=== PATIENT | female | born 1950 | race Two or more races ===

== ENCOUNTER 2024-09-04 10:51 | Emergency (ER) | payer MEDICARE, OTHER, SELFPAY ==
[2024-09-04 10:56] VITALS: BP 119/75; PULSE 100; RESP 17; TEMP 36.8; O2SAT 96; BMI 23.8
--- NOTE | 2024-09-04 11:07 | XR_ITS ---
EXAMINATION: Ankle, left 3 views . Technique: Ankle AP, oblique, lateral 3 views Date and time of exam: September 04, 2024 1148 hours INDICATIONS: Patient fell today with injury to the ankle, ankle pain FINDINGS: Prominent osteopenia Recommend foot films to confirm fracture of the fifth metatarsal No ankle fracture IMPRESSION: Recommend foot films to better evaluate fracture fifth metatarsal
--- NOTE | 2024-09-04 11:07 | XR_ITS ---
Examination: Hand, left 3 views Technique: Hand AP, oblique, lateral 3 views Date and time of exam: September 04, 2024 1148 hours INDICATIONS: Patient fell today with injury to the hand and wrist, left hand wrist pain FINDINGS: Acute impacted fracture distal radial metaphysis No significant displacement Prominent osteopenia Carpal bones metacarpals and phalanges appear intact IMPRESSION: Acute impacted fracture distal radial metaphysis
--- NOTE | 2024-09-04 11:07 | XR_ITS ---
Examination: Wrist, left 3 views Technique: Wrist AP, oblique, lateral 3 views Date and time of exam: September 04, 2024 1148 hours INDICATIONS: Patient fell today with injury to the wrist, wrist pain. FINDINGS: Acute impacted fracture distal radial metaphysis No significant displacement Carpal bones intact IMPRESSION: Acute impacted fracture distal radial metaphysis
--- NOTE | 2024-09-04 11:08 | PD.EDRME ---
Rapid Medical Screening Exam [facility] Arrival date/time: 09/04/24 10:51 Female presents emergency department complaining of left wrist and left ankle pain status post accidental fall this past Monday. Patient reports was getting out of the shower slipped and suffered fall with no injury to head or neck and no LOC. Chief Complaint: Extremity Injury, Upper Time Seen by Provider: 09/04/24 11:02 Vital signs: Vital Signs Temperature 98.2 F 09/04/24 10:56 Pulse Rate 100 09/04/24 10:56 Respiratory Rate 17 09/04/24 10:56 Blood Pressure 119/75 09/04/24 10:56 Pulse Oximetry (%) 96 09/04/24 10:56 Oxygen Delivery Method Room Air 09/04/24 10:56
[2024-09-04] MEDS: KETOROLAC INJ 60 MG/2 ML VIAL 30 MG IM (11:49)
[2024-09-04 13:14] VITALS: BP 119/73; PULSE 76; RESP 16; TEMP 36.8; O2SAT 97
--- NOTE | 2024-09-04 13:22 | XR_ITS ---
Examination: Foot, left, 3 views Technique: AP, oblique, lateral views foot, 3 views Date and time of exam: September 04, 2024 1331 hours INDICATIONS: Injury to the foot today, foot pain. FINDINGS: Acute comminuted angulated fracture mid to distal fifth metatarsal Prominent osteopenia Tarsal bones digits appear intact IMPRESSION: Acute comminuted angulated fracture mid to distal fifth metatarsal
--- NOTE | 2024-10-15 02:09 | EDNOTE_ITS ---
Upper Extremity Injury RME/HPI General Chief Complaint: Extremity Injury, Upper Stated Complaint: FALL MONDAY, PAIN LEFT HAND, WRIST FEET Time Seen by Provider: 09/04/24 11:02 Source: patient Arrival date/time: 09/04/24 10:51 74 y/o Female presents emergency department complaining of left wrist and left ankle pain status post accidental fall this past Monday. Patient reports was getting out of the shower slipped and suffered fall with no injury to head or neck and no LOC. Mode of arrival: wheelchair Limitations: physical limitation RME / HPI RME / HPI narrative: 09/04/24 10:51 Female presents emergency department complaining of left wrist and left ankle pain status post accidental fall this past Monday. Patient reports was getting out of the shower slipped and suffered fall with no injury to head or neck and no LOC. Related Data Home Medications ?Medication ?Instructions ?Recorded ?Confirmed albuterol sulfate 90 mcg/actuation 2 hr inhalation QID 04/30/19 06/09/20 aerosol inhaler (ProAir HFA) codeine 10 mg-guaifenesin 100 mg/5 10 ml PO TID 04/30/19 06/09/20 mL oral liquid (Virtussin AC) esomeprazole magnesium 40 mg 40 mg PO DAILY 04/30/19 06/09/20 capsule,delayed release (Nexium) levothyroxine 50 mcg tablet 50 mcg PO DAILY 04/30/19 06/09/20 lorazepam 1 mg tablet 1 mg PO BID 04/30/19 06/09/20 ondansetron HCl 4 mg tablet 4 mg PO QID PRN Nausea 04/30/19 06/09/20 (Zofran) acetaminophen 325 mg tablet 325 mg PO Q4H PRN Pain 11/29/19 06/09/20 (Tylenol) aspirin 81 mg tablet,delayed 81 mg PO QDAY 11/29/19 06/09/20 release metoprolol succinate 25 mg 25 mg PO QDAY 11/29/19 06/09/20 tablet,extended release 24 hr nitroglycerin 0.4 mg sublingual 0.4 mg buccal PRN PRN Chest Pain 11/29/19 06/09/20 tablet acetaminophen 300 mg-codeine 60 mg 1 tab PO BID 06/09/20 06/09/20 tablet metoprolol succinate 25 mg 25 mg PO QDAY 06/09/20 06/09/20 tablet,extended release 24 hr (Toprol XL) prochlorperazine maleate 10 mg 10 mg PO Q8H PRN Vomiting 06/09/20 06/09/20 tablet (Compazine) Previous Rx's ?Medication ?Instructions ?Recorded ibuprofen 600 mg tablet 600 mg PO Q6H #30 tabs 09/04/24 oxycodone-acetaminophen 5 mg-325 1 tab PO BID PRN pain (scale score 09/04/24 mg tablet (Percocet) 7-10) #10 tabs Allergies Allergy/AdvReac Type Severity Reaction Status Date / Time methylene blue Allergy Severe Hypotension Verified 09/04/24 10:54 Tetracyclines Allergy Severe Vomiting Verified 09/04/24 10:54 ciprofloxacin Allergy Intermediate Rash Verified 09/04/24 10:54 sulfamethoxazole Allergy Intermediate Rash Verified 09/04/24 10:54 trimethoprim Allergy Unknown Rash Verified 09/04/24 10:54 Review of Systems Review of Systems Systems Reviewed: All systems reviewed, normal except as documented Constitutional Constitutional: Reports system reviewed and no additional complaints, except as documented, Denies body ache(s), Denies chills and Denies fever(s) Eyes Eyes: Reports system reviewed and no additional complaints, except as documented and Denies change in vision ENT Ears, Nose, Mouth, and Throat: Reports system reviewed and no additional complaints, except as documented, Denies disequilibrium, Denies dizziness, Denies sore throat and Denies vertigo Cardiovascular Cardiovascular: Reports system reviewed and no additional complaints, except as documented, Denies chest pain and Denies dyspnea Respiratory Respiratory: Reports system reviewed and no additional complaints, except as documented, Denies chest congestion, Denies cough and Denies dyspnea Gastrointestinal Gastrointestinal: Reports system reviewed and no additional complaints, except as documented, Denies abdominal pain, Denies nausea and Denies vomiting Musculoskeletal Musculoskeletal: Reports system reviewed and no additional complaints, except as documented, Reports abnormal gait and Reports arthralgias Integumentary/Breasts Skin/Breast: Reports system reviewed and no additional complaints, except as documented, Denies erythema, Denies rash and Denies wounds Neurologic Neurologic: Reports system reviewed and no additional complaints, except as documented, Reports abnormal gait, Denies disequilibrium, Denies dizziness and Denies vertigo Past Medical History Past Medical History NEUROLOGIC: Positive Migraine CARDIAC: Positive Cardiac Disorders, Cardiac Arrhythmia and Hypotension; Negative Congestive Heart Failure or Hypertension RESPIRATORY: Positive Asthma; Negative Chronic Obstructive Pulmonary Disease (COPD) GASTROINTESTINAL: Positive Gall Bladder Disease and Gastroesophageal Reflux Disease GENITOURINARY: Negative Renal Disease REPRODUCTIVE: Positive Breast Cancer and Previous Pregnancies MUSCULOSKELETAL: Positive Arthritis ENDOCRINE: Positive Hypothyroidism; Negative Diabetes Mellitus Type 1 or Diabetes Mellitus Type 2 HEMATOLOGIC: Positive Anemia; Negative Sickle Cell Disease PSYCHO/SOCIAL: Positive Anxiety OTHER HISTORY: Positive Blood Transfusions, Chemotherapy, Radiation Therapy, Chicken Pox and Breast Cancer; Negative Blood Transfusion Reaction Family History FAMILY HISTORY: Positive Family Respiratory Disorders, Family Cardiac Disorders and Family Cancer Surgical History SURGICAL: Positive Tonsillectomy, Abdominal Surgery, Mastectomy, Hysterectomy and Section Social History SMOKING STATUS: Never smoker SUBSTANCE USE: does not use ED Exam General Limitations: Present physical limitation General appearance: Present alert and in no apparent distress Head Head exam: Present atraumatic Eye Eye exam: Present normal appearance, PERRL and EOMI ENT ENT exam: Present normal exam, normal oropharynx and mucous membranes moist Neck Neck exam: Present normal inspection, full ROM and trachea midline Chest Chest inspection: Present normal inspection and symmetric chest wall rise Respiratory Respiratory exam: Present normal lung sounds bilaterally Cardiovascular Cardiovascular exam: Present regular rate, normal rhythm and normal heart sounds Abdominal Exam Abdominal exam: Present soft and normal bowel sounds Extremities Exam Extremities exam: Present normal inspection and full ROM Expanded Upper Extremity Exam Forearm/Wrist exam: Present tenderness (left wrist) Expanded Lower Extremity Exam Ankle exam: Present tenderness (left ankle) Back Exam Back exam: Present normal inspection and full ROM Neurological Exam Neurological exam: Present alert, oriented X3 and CN II-XII intact Psychiatric Psychiatric exam: Present normal affect and normal mood Skin Skin exam: Present warm, dry, intact and normal color Course Quality Measures none Orders Category Date Time Status Splint / Immobilizer STAT Care 09/04/24 14:09 Completed Splint / Immobilizer STAT Care 09/04/24 14:10 Completed XR ankle comp LT min 3V Stat Exams 09/04/24 11:07 Completed XR foot comp LT min 3V Stat Exams 09/04/24 13:22 Completed XR hand comp LT min 3V Stat Exams 09/04/24 11:07 Completed XR wrist comp LT min 3V Stat Exams 09/04/24 11:07 Completed Ketorolac Inj [Toradol Inj] Med 09/04/24 11:07 Discontinued 30 mg IM X1 ONE Vital Signs Vital signs: Vital Signs Temperature 98.2 F 09/04/24 10:56 Pulse Rate 100 09/04/24 10:56 Respiratory Rate 17 09/04/24 10:56 Blood Pressure 119/75 09/04/24 10:56 Pulse Oximetry (%) 96 09/04/24 10:56 Oxygen Delivery Method Room Air 09/04/24 10:56 96% RA WNL. Procedures -ED Splint Fabrication: Clinician Made Type: Posterior Leg Reason for Splint: Improve Function, Optimal Positioning, Minimize Deformities, Prevent Deformities and Support Joint/Muscle Site condition: Intact Circulation Distal to Splint: Yes Movement Distal to Splint: Yes Senation Distal to Splint: Yes Tolerance: Tolerates Well Extremity Injury MDM Narrative MDM Narrative:: 74 y/o Female presents emergency department complaining of left wrist and left ankle pain status post accidental fall this past Monday. Patient reports was getting out of the shower slipped and suffered fall with no injury to head or neck and no LOC. Patient gcs 15. XR left foot: IMPRESSION: Early healing comminuted angulated fracture distal fifth metatarsal with stable alignment XR wrist left: IMPRESSION: Partial healing fracture distal radial metaphysis, with stable and satisfactory alignment Applied volar splint to left wrist and posterior short to left foot. Patient tolerated well. LUE and LLE neurovascularly intact. Discharged instructed f/u with pcp and request referral to orthopedist surgeon. Patient data External records reviewed:: [facility] previous records Clinical information provided by:: patient Social determinants that could affect healthcare access:: none Patient has the following chronic illnesses:: see chart How is presenting disease/condition affected by chronic disease/condition?: uneffected by Evaluation data The following diagnostics were reviewed and interpreted by me:: radiology exam(s) Lab and/or radiology exams considered but not ordered:: ordered Interpretation Summary: interpreted by me Medications / Prescriptions Medications or Prescriptions considered but not ordered:: ordered Medication administrations:: Medication Administration History Discontinued Medications Ketorolac Tromethamine (Ketorolac Inj 60 Mg/2 Ml Vial) 30 mg IM X1 ONE Stop: 09/04/24 11:08 Last Admin: 09/04/24 11:49 Dose: 30 mg Documented By: ARF given Consultations Consultation(s) initiated? (list below): No Diagnosis Upper Extremity Injury Differential Diagnosis: fracture of wrist and other (ankle fracture) Most likely diagnosis given after review of the tests above:: radial fracture metatarsal fracture Admission Indicated Admission indicated?: not indicated Admission Request Was there a request for admission?: No Disposition Plan Disposition Plan: Discharge Discharge Attestation Discharge Attestation: The patient and all family members were given an opportunity to ask questions and understood the discharge instructions. Discharge instructions specifically effects, indications for sooner follow up or return to the emergency department, and the expected course of current diagnosis. Patient condition: Stable Discharge Plan Plan Patient Disposition: HOME (Self Care) Disposition Comment: Stable Prescriptions/Referrals Prescriptions/Med Rec: New oxycodone-acetaminophen [Percocet] 5-325 mg tablet 1 tab PO BID MDD 2 tabs PRN (Reason: pain (scale score 7-10)) Qty: 10 0RF ibuprofen 600 mg tablet 600 mg PO Q6H Qty: 30 0RF No Action ondansetron HCl [Zofran] 4 mg Tablet 4 mg PO QID PRN (Reason: Nausea) levothyroxine 50 mcg Tablet 50 mcg PO DAILY esomeprazole magnesium [Nexium] 40 mg Capsule,Delayed Release(Dr/Ec) 40 mg PO DAILY codeine-guaifenesin [Virtussin AC] 10-100 mg/5 mL Liquid 10 ml PO TID lorazepam 1 mg Tablet 1 mg PO BID albuterol sulfate [ProAir HFA] 90 mcg/actuation Hfa Aerosol Inhaler 2 hr inhalation QID acetaminophen [Tylenol] 325 mg Tablet 325 mg PO Q4H PRN (Reason: Pain) metoprolol succinate 25 mg Tablet Extended Release 24 Hr 25 mg PO QDAY aspirin 81 mg Tablet,Delayed Release (Dr/Ec) 81 mg PO QDAY nitroglycerin 0.4 mg Tablet, Sublingual 0.4 mg BUCCAL PRN PRN (Reason: Chest Pain) prochlorperazine maleate [Compazine] 10 mg Tablet 10 mg PO Q8H PRN (Reason: Vomiting) acetaminophen-codeine 300-60 mg Tablet 1 tab PO BID metoprolol succinate [Toprol XL] 25 mg Tablet Extended Release 24 Hr 25 mg PO QDAY Referrals: Abdelrahman Dan MD [Primary Care Provider] - In 1 week Problem List Clinical Impression: Radial fracture, Metatarsal fracture Patient/Caregiver Discharge Instructions Education Materials: ED Fracture, Foot, ED Fracture, Upper Extremity Additional Instructions: Follow-up with your primary doctor and request referral to orthopedic surgeon upon discharge. Take medication as prescribed for pain. Return to the emergency department for any worsening symptoms or as needed. Print Language: Nepali Stand Alone Forms: Lavinia Award Info., Patient Portal Info Letter PA/REMANUFACTURING TECHNICIAN Supervising Physician PA/ISAI Supervising Physician: Dr. Livingston Splint/Immobilizer Splint Left Wrist: Fabrication: Clinician Made Type: Volar Reason for Splint: Improve Function, Optimal Positioning, Pain Management, Minimize Deformities, Prevent Deformities and Support Joint/Muscle Site Condition: Intact Circulation Distal to Splint: Yes Movement Distal to Splint: Yes Senation Distal to Splint: Yes Tolerance: Tolerates Well
== END 2024-09-04 14:15 | disposition home or self-care (01) ==
PROVIDERS: Emergency Provider Emergency Medicine; PCP Family Medicine
DX: S92.352A Displaced fracture of fifth metatarsal bone, left foot, initial encounter for closed fracture (principal); S52.502A Unspecified fracture of the lower end of left radius, initial encounter for closed fracture; W18.2XXA Fall in (into) shower or empty bathtub, initial encounter; Y93.E1 Activity, personal bathing and showering
CPT/HCPCS: 29125; 29515; 73110; 73130; 73610; 73630; 99283; J1885

== ENCOUNTER → 2025-03-28 | Outpatient (CLI) | payer MEDICARE, OTHER, SELFPAY ==
--- NOTE | 2025-03-28 | XR_ITS ---
Examination: Screening digital mammography, unilateral left Computer aided detection 3-D breast Tomosynthesis, unilateral Date and time of exam: March 28, 2025 1245 hours Compared to mammograms dating to April 21, 2017 Indication: Screening Technique: Nonmagnified MLO, CC views of the left breast to been obtained, reconstructed from 3-D Tomosynthesis images. R2 computer aided detection program utilized for evaluation of suspicious masses and/or abnormal calcifications. 3-D Tomosynthesis images obtained. Findings: Scattered areas of fibroglandular density. 12 mm focal asymmetry lower left breast MLO view 4 cm from the nipple Impression: BI-RADS Category 0: Incomplete: Need additional imaging evaluation 12 mm focal asymmetry lower left breast MLO view 4 cm from the nipple. Recommend follow-up spot tomographic MLO view, spot tomographic CC view outer left breast left breast sonography to complete the workup
== END | disposition home or self-care (01) ==
PROVIDERS: PCP Family Medicine; Referring Provider Family Medicine; Visit Provider Family Medicine
DX: Z12.31 Encounter for screening mammogram for malignant neoplasm of breast (principal); N64.89 Other specified disorders of breast
CPT/HCPCS: 77063; 77067

== ENCOUNTER → 2025-05-09 | Outpatient (CLI) | payer MEDICARE, OTHER, SELFPAY ==
--- NOTE | 2025-05-09 14:30 | XR_ITS ---
Examination: Breast ultrasound, unilateral, left complete Date and time of exam: May 09, 2025 1430 hours INDICATIONS: Left breast pain several years, personal history right breast cancer mastectomy 2011, mammogram March 28, 2025 12 mm focal asymmetry lower left breast MLO view 4 cm from the nipple Technique: Real-time hidalgo scale ultrasonographic imaging performed left breast including all 4 quadrants as well as nipple retroareolar and axillary region. Findings: No cystic or solid mass IMPRESSION: BI-RADS Category 1: Negative study
--- NOTE | 2025-05-09 15:00 | XR_ITS ---
Examination: Diagnostic digital mammography, unilateral, left Computer aided detection 3-D breast Tomosynthesis, unilateral Date and time of exam: May 09, 2025 1447 hours INDICATIONS: 12 mm focal asymmetry lower left breast MLO view, 4 cm from the nipple mar 28 2025 Technique: Nonmagnified MLO, CC views of the left breast have been obtained, reconstructed from 3-D Tomosynthesis images. R2 computer aided detection program utilized for evaluation of suspicious masses and/or abnormal calcifications. 3-D Tomosynthesis images obtained. Findings: Scattered areas of fibroglandular density Architectural distortion does appear to be present lower left breast, abnormal view in the cc view is centered too high 5 believed to confirm the architectural distortion Impression: BI-RADS category 0: Incomplete: Need additional imaging evaluation, recommend follow-up spot tomographic CC view centered nipple level
== END | disposition home or self-care (01) ==
PROVIDERS: PCP Family Medicine; Referring Provider Family Medicine; Visit Provider Family Medicine
DX: R92.8 Other abnormal and inconclusive findings on diagnostic imaging of breast (principal); Z85.3 Personal history of malignant neoplasm of breast
CPT/HCPCS: 76641; 77061; 77065; G0279

== ENCOUNTER 2025-06-12 12:18 | Outpatient (CLI) | payer MEDICARE, OTHER, SELFPAY ==
[2025-06-12] VITALS (9 sets, daily range): BP systolic 113–142; BP diastolic 56–71; PULSE 64–70; RESP 16–24; TEMP 36.2; O2SAT 95–100; BMI 24.5
--- NOTE | 2025-06-12 13:00 | XR_ITS ---
Examination: IR venous Port-A-Cath check Fluoroscopy Port-A-Cath venogram 7 views Local intravenous lobulated therapy Date and time: June 12, 2025 1308 hours INDICATIONS: Poor function of the Port-A-Cath this month TECHNIQUE AND FINDINGS: Informed consent provided. Timeout performed. Hand injection 8 cc [id number]-300 with serial filming obtained one frame per second Images demonstrate clot in the Port-A-Cath line with poor passage of contrast through the reservoir and through the line 2 mg outflow introduced through the Port-A-Cath line, however blood could not be aspirated from the Port-A-Cath IMPRESSION: Clot formation in the Port-A-Cath, thrombolytic therapy unsuccessful in allowing aspiration of blood from the Port-A-Cath
[2025-06-12] MEDS: ALTEPLASE RECOMB INJ 2 MG VIAL INDWELLCAT (14:13)
[2025-06-12] MEDS: HEPARIN SOD LOCK SYR 100 UNIT/ML 500 UNIT IV (15:00)
== END 2025-06-12 15:15 | disposition home or self-care (01) ==
PROVIDERS: PCP Nurse Practitioner; Referring Provider Nurse Practitioner; Visit Provider Nurse Practitioner
DX: D46.0 Refractory anemia without ring sideroblasts, so stated (principal); T82.514A Breakdown (mechanical) of infusion catheter, initial encounter
CPT/HCPCS: 36598; A4216; J1642; J2997

== ENCOUNTER → 2025-06-18 | Outpatient (CLI) | payer MEDICARE, OTHER, SELFPAY ==
--- NOTE | 2025-06-18 14:00 | XR_ITS ---
Examination: MRI of brain without intravenous contrast. MRI brain with intravenous contrast. Date and time of exam:June 18, 2025 1414 hours INDICATIONS: Headaches one year Technique: Multiple axial and sagittal images of the brain to been obtained. Siemens high-resolution 1.52 Ghislaine short bore scanner utilized. Sagittal sections, T1 weighted images, TR 500, TE 14, are performed. Axial sections proton-density and T2-weighted images have been obtained. Inversion recovery axial images, TR 9260, TE 111, TR 2500. Diffusion weighted images, axial sections, TR 4800, TE 128, B value 1000. Axial sections, ADC map, TR 4800, TE 128. Axial and coronal images were also obtained post 11 cc gadolinium administered intravenously. Findings:: Enlargement of the sella turcica is not present. The optic chiasm and infundibular stalk are not remarkable. There is no localized enlargement of the medulla or namrata. Fourth ventricle and cerebellar tonsils appear normal in position. No subacute area of hemorrhage density is seen. Fourth ventricle is midline. Mass in the cerebellopontine angle region is not evident. 7th and 8th nerve complexes exhibit symmetry Globes are symmetrical Orbital musculature including medial lateral rectus muscles do not exhibit abnormality Increased white matter signal is not significant Effacement of the cortical sulcal markings is not identified. Mass effect upon the ventricular system is not identified. Diffusion-weighted images demonstrate no focus of restricted diffusion Contrast images demonstrate no abnormal enhancement Impression: Negative for acute hemorrhage mass effect or midline shift No acute infarct No significant chronic microvascular white matter change Prominent chronic sinusitis including retention cyst in the sphenoid air cells
--- NOTE | 2025-06-18 14:45 | XR_ITS ---
Examination: MRI of orbits with without contrast TECHNIQUE: Multiple MR images obtained axial coronal of the orbits pre and post intravenous administration 11 cc gadolinium Date and time: June 18, 2025 1505 hours INDICATIONS: Left eyelid droop 4 months headaches FINDINGS: The optic globes exhibit symmetry Symmetrical optic nerves No retro-orbital mass lesion Prominent ethmoid sphenoid and frontal sinusitis Ventricles are not enlarged There is no displacement of the optic chiasm No enlargement of the pituitary Postcontrast images demonstrate no abnormal orbital enhancement Ophthalmologic musculature is not enlarged IMPRESSION: Symmetrical optic globes Normal optic nerves No retro-orbital mass lesion Significant chronic ethmoid frontal sphenoid sinusitis
== END | disposition home or self-care (01) ==
LOC: SMRI 13:27
PROVIDERS: PCP Family Medicine; Referring Provider Family Medicine; Visit Provider Family Medicine
DX: J32.8 Other chronic sinusitis (principal); J34.1 Cyst and mucocele of nose and nasal sinus
CPT/HCPCS: 70543; 70553; A9579

== ENCOUNTER 2025-10-26 22:45 | Emergency (ER) | payer MEDICARE, OTHER, SELFPAY ==
[2025-10-26 22:50] VITALS: BMI 25.1
[2025-10-26 22:52] VITALS: BP 156/74; PULSE 98; RESP 18; TEMP 36.6; O2SAT 96
[2025-10-26 22:57] VITALS: PULSE 84; RESP 16; O2SAT 98
--- NOTE | 2025-10-26 23:09 | XR_ITS ---
Examination: CT abdomen and pelvis without contrast. Coronal 3-D reconstructions. Sagittal 2-D reconstructions. Date and time of exam: October,, 0011 hours INDICATIONS: Nausea vomiting abdominal pain onset today. CTDI: vol (mGy): 7.66 DLP: (mGycm): 353 Technique: Axial images of the abdomen have been obtained, 3 mm slice thickness Intravenous contrast material has not been administered. Low dose protocols were performed. One or more of the following dose reduction techniques were used; automated exposure control, adjustment of the mA and/or KV according to patient size, use of iterative reconstruction technique. Findings: Small calcification in the liver Absent gallbladder Spleen is not enlarged No pancreatic or adrenal mass Moderate right renal scar formation, no renal or ureteral calculi, no hydronephrosis Aorta normal size No bowel obstruction No pericecal inflammatory change Urinary bladder intact Normal appendix No diverticulitis Bilateral inguinal hernias Moderate osteopenia On the lateral view pelvic floor laxity with rectocele IMPRESSION: No acute process in the abdomen or pelvis
--- NOTE | 2025-10-26 23:09 | PD.EDRME ---
Rapid Medical Screening Exam [facility] Arrival date/time: 10/26/25 22:45 This is a case of 75-year-old female with no medical history came into the emergency room due to abdominal pain nausea vomiting for 3 days worsening of the symptoms this patient decided to start consult here in the emergency room Chief Complaint: Nausea/Vomiting/Diarrhea Time Seen by Provider: 10/26/25 23:08 Vital signs: Vital Signs Temperature 98 F 10/26/25 22:52 Pulse Rate 98 10/26/25 22:52 Respiratory Rate 18 10/26/25 22:52 Blood Pressure 156/74 H 10/26/25 22:52 Pulse Oximetry (%) 96 10/26/25 22:52 Oxygen Delivery Method Room Air 10/26/25 22:52 Exam: Moderate tenderness generalized abdomen no guarding no rebound no rigidity Clinical Impression: Abdominal pain
[2025-10-26] MEDS: ONDANSETRON INJ 2 MG/ML INJ 2 ML 4 MG IM (23:33)
[2025-10-26 23:45] LABS: Basophils # (Auto) 0.0 Thou/mm3 (0.0-0.2); Basophils % (Auto) 1 % (0-2.5); Eosinophils # (Auto) 0.1 Thou/mm3 (0.0-0.5); Eosinophils % (Auto) 2 % (0-10); Hematocrit 38.8 % (36.0-46.0); Hemoglobin 13.2 g/dL (12.0-16.0); Immature Granulocytes Auto 0.01 Thou/mm3 (0.00-0.00); Lymphocytes # (Auto) 1.0 Thou/mm3 (1.0-4.8); Lymphocytes % (Auto) 17 % (10-50); Mean Corpuscular HGB Conc 34.0 g/dl (31.0-37.0); Mean Corpuscular Hemoglobin 29.1 pg (25.0-35.0); Mean Corpuscular Volume 86 fL (80-100); Monocytes # (Auto) 0.5 Thou/mm3 (0.0-0.8); Monocytes % (Auto) 9 % (0-12); Neutrophils # (Auto) 3.9 Thou/mm3 (1.8-7.7); Neutrophils % (Auto) 70 % (37-80); Nucleated Red Blood Cell # 0.00 Thou/mm3 (0.00-0.00); Nucleated Red Blood Cell % 0 /100 WBC (0); Platelet Count 351 Thou/mm3 (140-440); RDW Standard Deviation 43.3 fL (36.4-46.3); Red Blood Count 4.54 Miln/mm3 (4.00-5.20); White Blood Count 5.5 Thou/mm3 (3.6-11.0)
[2025-10-27 00:12] LABS: Alanine Aminotransferase 47 U/L (10-49); Albumin, Serum 4.6 gm/dL (3.4-4.8); Albumin/Globulin Ratio 1.4 (1.2-2.2); Alkaline Phosphatase 97 U/L (46-116); Anion Gap 11 (7-16); Aspartate Amino Transferase 38 U/L (0-34); BUN/Creatinine Ratio 20 Ratio (12-20); Bilirubin,Total 0.2 mg/dL (0.3-1.2); Blood Urea Nitrogen 14 mg/dL (9-23); Calcium 9.1 mg/dL (8.3-10.6); Calcium (Corrected) 9.1 mg/dL (8.5-10.1); Carbon Dioxide 28.5 mMol/L (20.0-31.0); Chloride 98 mMol/L (98-107); Creatinine (Component) 0.7 mg/dL (0.6-1.3); Estimated Creatinine Clearance 57.9 mL/min (>60); Globulin 3.3 gm/dL (2.3-3.5); Glucose 118 mg/dL (74-106); Lipase 35 U/L (12-53); Osmolality,Calculated 275 (275-295); Potassium 3.9 mMol/L (3.4-5.1); Sodium 137 mMol/L (136-145); Total Protein 7.9 gm/dL (5.7-8.2); eGFR > 60 See Note
--- NOTE | 2025-10-27 01:21 | PRELIM_ITS ---
CT scan of the abdomen and pelvis without intravenous contrast (axial sections with sagittal and coronal reformats) October 27, 2025 at 0011 hours Clinical History: Abdominal pain. Comparison: No prior study is available for comparison. Findings: A calcific density is noted in the liver, likely representing an old calcified granuloma. There is a 6 mm hypodensity in the right lobe of the liver, which may represent a cyst. The gallbladder is surgically absent. No biliary ductal dilatation. The pancreas, spleen, kidneys and adrenals are unremarkable on this noncontrast study. No evidence of renal/ureteric calculus or hydroureteronephrosis. A moderate amount of fecal material is present in the colon. No evidence of bowel obstruction. The appendix is within normal limits (images [id number]). There are anastomotic bowel sutures in the distal ileum with atonic adjacent bowel loops. There is no mesenteric or retroperitoneal lymphadenopathy. There is suggestion of pelvic floor laxity with possible rectocele. The urinary bladder is distended. The uterus is not visualized and may be surgically absent. No evidence of adnexal mass. There is no free fluid or free air. There are air loculi in the left upper gluteal region, which may be due to recent injection. There is superficial scarring in the bilateral gluteal regions. There are small fat-containing umbilical and bilateral inguinal hernias. Degenerative changes are identified in the spine. Bibasilar streaky atelectasis is present. A small hiatal hernia is present. Please note that evaluation of soft tissue/vascular structures and bowel loops is limited due to absence of IV and oral contrast. Impression: 1. No evidence of acute pancreatitis. 2. Other findings as described above. Suggest clinical correlation and follow up accordingly. Report Electronically Signed By: Maco Talbot 10/27/2025 1:21:02 AM [EST]
[2025-10-27 02:38] LABS: Collection Type, Urine Clean Catch
[2025-10-27 02:47] VITALS: BP 162/78; PULSE 66; RESP 18; TEMP 36.8; O2SAT 97
[2025-10-27 03:03] LABS: Bilirubin,Urine Negative (Negative); Blood,Urine Negative (Negative); Clarity,Urine Clear (Clear/Hazy); Color,Urine Colorless (Lt Yel-Yel); Glucose, Urine Negative (Negative); Ketones,Urine Negative (Negative); Leukocyte Esterase,Urine Negative (Negative); Nitrite,Urine Negative (Negative); PH,Urine 7.5 (5.0-7.0); Protein,Urine Negative (Neg - Trace); RBC,Urine 3 /hpf (0-3); Specific Gravity,Urine 1.011 (1.001-1.035); Squamous Epithelial Cell,Urine < 1 /hpf (0-5); Urobilinogen,Urine Negative mg/dL (0.0-1.0); WBC,Urine 1 /hpf (0-5)
--- NOTE | 2025-10-27 04:24 | PD.EDNV ---
Nausea/Vomit./Diarrhea-RME/HPI General Chief complaint: Nausea/Vomiting/Diarrhea Stated complaint: N/V Time Seen by Provider: 10/26/25 23:08 Arrival date/time: 10/26/25 22:45 RME / HPI RME / HPI Narrative: 10/26/25 22:45 This is a case of 75-year-old female with no medical history came into the emergency room due to abdominal pain nausea vomiting for 3 days worsening of the symptoms this patient decided to start consult here in the emergency room Dr[facility] Evaluation: 75yo female presenting with onset of nausea and headache associated with elevated blood pressure at 200 sysolically. No chest pain. Reports mild shortness of breath. No fever, chills, or productive cough. Patient is compliant with her antihypertensives. No visual disturbances or disequilibrium. PMH includes breast CA, HTN, COPD. PSH includes right mastectomy. Nonsmoker, nondrinker, no illicit drug use. Related Data Home Medications ?Medication ?Instructions ?Recorded ?Confirmed albuterol sulfate 90 mcg/actuation 2 hr inhalation QID 04/30/19 06/09/20 aerosol inhaler (ProAir HFA) codeine 10 mg-guaifenesin 100 mg/5 10 ml PO TID 04/30/19 06/09/20 mL oral liquid (Virtussin AC) esomeprazole magnesium 40 mg 40 mg PO DAILY 04/30/19 06/09/20 capsule,delayed release (Nexium) levothyroxine 50 mcg tablet 50 mcg PO DAILY 04/30/19 06/09/20 lorazepam 1 mg tablet 1 mg PO BID 04/30/19 06/09/20 ondansetron HCl 4 mg tablet 4 mg PO QID PRN Nausea 04/30/19 06/09/20 (Zofran) acetaminophen 325 mg tablet 325 mg PO Q4H PRN Pain 11/29/19 06/09/20 (Tylenol) aspirin 81 mg tablet,delayed 81 mg PO QDAY 11/29/19 06/09/20 release metoprolol succinate 25 mg 25 mg PO QDAY 11/29/19 06/09/20 tablet,extended release 24 hr nitroglycerin 0.4 mg sublingual 0.4 mg buccal PRN PRN Chest Pain 11/29/19 06/09/20 tablet acetaminophen 300 mg-codeine 60 mg 1 tab PO BID 06/09/20 06/09/20 tablet metoprolol succinate 25 mg 25 mg PO QDAY 06/09/20 06/09/20 tablet,extended release 24 hr (Toprol XL) prochlorperazine maleate 10 mg 10 mg PO Q8H PRN Vomiting 06/09/20 06/09/20 tablet (Compazine) Previous Rx's ?Medication ?Instructions ?Recorded ibuprofen 600 mg tablet 600 mg PO Q6H #30 tabs 09/04/24 oxycodone-acetaminophen 5 mg-325 1 tab PO BID PRN pain (scale score 09/04/24 mg tablet (Percocet) 7-10) #10 tabs hydrochlorothiazide 25 mg tablet 25 mg PO QAM #30 tabs 10/27/25 Allergies Allergy/AdvReac Type Severity Reaction Status Date / Time methylene blue Allergy Severe Hypotension Verified 10/26/25 22:56 Tetracyclines Allergy Severe Vomiting Verified 10/26/25 22:56 ciprofloxacin Allergy Intermediate Rash Verified 10/26/25 22:56 sulfamethoxazole Allergy Intermediate Rash Verified 10/26/25 22:56 trimethoprim Allergy Unknown Rash Verified 10/26/25 22:56 Review of Systems Review of Systems Systems Reviewed: All systems reviewed, normal except as documented Past Medical History Past Medical History NEUROLOGIC: Positive Neurological Disorders and Migraine CARDIAC: Positive Cardiac Disorders, Cardiac Arrhythmia, Hypertension and Hypotension; Negative Congestive Heart Failure RESPIRATORY: Positive Asthma; Negative Chronic Obstructive Pulmonary Disease (COPD) GASTROINTESTINAL: Positive Gastrointestinal Disorders (nausea), Gall Bladder Disease and Gastroesophageal Reflux Disease GENITOURINARY: Negative Genitourinary Disorders or Renal Disease REPRODUCTIVE: Positive Breast Cancer and Previous Pregnancies MUSCULOSKELETAL: Positive Musculoskeletal Disorders and Arthritis ENDOCRINE: Positive Hypothyroidism; Negative Endocrine Disorders, Diabetes Mellitus Type 1 or Diabetes Mellitus Type 2 HEMATOLOGIC: Positive Blood Disorders and Anemia; Negative Sickle Cell Disease PSYCHO/SOCIAL: Positive Depression and Anxiety OTHER HISTORY: Positive Blood Transfusions, Chemotherapy, Radiation Therapy, Chicken Pox and Breast Cancer; Negative Blood Transfusion Reaction or Anesthesia Reactions Family History FAMILY HISTORY: Positive Family Respiratory Disorders, Family Cardiac Disorders and Family Cancer Surgical History SURGICAL: Positive Tonsillectomy, Abdominal Surgery, Bowel Surgery, Mastectomy, Hysterectomy and Section; Negative Joint Replacement Social History SMOKING STATUS: Never smoker SUBSTANCE USE: does not use ED Exam Narrative Physical exam: GENERAL APPEARANCE: alert and oriented x 4, well-developed, well-nourished, no acute distress VITALS: All vitals were reviewed and the pulse ox is 97% on room air, which is normal according to my interpretation. HEENT: Normocephalic, atraumatic; pupils equal, round, reactive to light; EOMI; mucous membranes pink, moist; oropharynx clear NECK: Supple LUNGS: Diminished breath sounds, mildly tachypneic at rest; no wheezes, no rales, no rhonchi HEART: Regular rate, regular rhythm; normal S1, S2; no murmurs ABDOMEN: non distended; normal BS; soft, no tenderness, no guarding, no rebound; no masses, no organomegaly, no hernia BACK: no CVA tenderness EXTREMITIES: atraumatic; no edema NEUROLOGIC: awake; alert and oriented x4; cranial nerves II-XII grossly intact; no focal sensory or motor deficits PSYCHIATRIC: appropriate mood and affect SKIN: warm, dry, normal color; no rashes Course Quality Measures none Orders Category Date Time Status EKG (ED ONLY) *Do not use* NOW Care 10/27/25 04:[address] abdomen pelvis wo con Stat Exams 10/26/25 23:09 Taken EKG (ED Only) Stat Exams 10/27/25 04:43 Ordered XR chest 1V portable Stat Exams 10/27/25 04:41 Taken CBC Stat Lab 10/26/25 23:26 Completed Comprehensive Metabolic Panel Stat Lab 10/26/25 23:26 Completed Lipase Stat Lab 10/26/25 23:26 Completed Urinalysis Stat Lab 10/27/25 01:52 Completed Nitroglycerin Oint 2% [Nitro-paste Oint 2%] Med 10/27/25 04:49 Discontinued 1 inch TOP X1 ONE Ondansetron Inj [Zofran Inj] Med 10/26/25 23:09 Discontinued 4 mg IM X1 ONE Vital Signs Vital signs: Vital Signs Temperature 98 F 10/26/25 22:52 Pulse Rate 98 10/26/25 22:52 Respiratory Rate 18 10/26/25 22:52 Blood Pressure 156/74 H 10/26/25 22:52 Pulse Oximetry (%) 96 10/26/25 22:52 Oxygen Delivery Method Room Air 10/26/25 22:52 Nausea/Vomiting/Diarrhea MDM Narrative MDM Narrative:: Scribe Attestation: 10/27/25 Barbara Trevino am scribing for and in the presence of Dr. Jessica. 75yo female presenting with onset of nausea and headache associated with elevated blood pressure at 200 sysolically. No chest pain. Reports mild shortness of breath. No fever, chills, or productive cough. Please see PE findings. Patient received an antiemetic and was observed for several hours. Patient's blood pressure essentially unchanged in the 150-160 systolic range as opposed to initial readings at home of 200. Patient also reports subjective improvement. No clinical signs of fluid overload or heart strain. Lab markers demonstrated a normal CBC. Chemistries demonstrated mildly elevated blood sugar of 118. UA without signs of infection. CT abdomen pelvis was obtained and demonstrates a ?rectocele, but no acute inflammatory process identified. CXR currently pending, if unremarkable, will likely augment antihypertensive regimen. Patient data External records reviewed:: [facility] previous records (Per chart review, patient was seen here on 10/15/24 for metatarsal fracture.) Clinical information provided by:: patient Social determinants that could affect healthcare access:: none Patient has the following chronic illnesses:: breast CA, HTN, asthma How is presenting disease/condition affected by chronic disease/condition?: uneffected by Evaluation data The following diagnostics were reviewed and interpreted by me:: lab results and radiology exam(s) (CXR shows hyperexpansion, no infiltrates, no pleural effusions, no pneumothorax, according to my interpretation.) Lab and/or radiology exams considered but not ordered:: none Interpretation Summary: [facility] Preliminary Report Draft Patient: KAYLIE BERNABE Record#: [id number] Birthdate: 1950 Age/Sex: 75 / F Location: [facility] Attending Dr: Ordering Physician: Date of Service: Procedure(s): Accession Number(s): cc: ~ CT scan of the abdomen and pelvis without intravenous contrast (axial sections with sagittal and coronal reformats) October 27, 2025 at 0011 hours Clinical History: Abdominal pain. Comparison: No prior study is available for comparison. Findings: A calcific density is noted in the liver, likely representing an old calcified granuloma. There is a 6 mm hypodensity in the right lobe of the liver, which may represent a cyst. The gallbladder is surgically absent. No biliary ductal dilatation. The pancreas, spleen, kidneys and adrenals are unremarkable on this noncontrast study. No evidence of renal/ureteric calculus or hydroureteronephrosis. A moderate amount of fecal material is present in the colon. No evidence of bowel obstruction. The appendix is within normal limits (images [id number]). There are anastomotic bowel sutures in the distal ileum with atonic adjacent bowel loops. There is no mesenteric or retroperitoneal lymphadenopathy. There is suggestion of pelvic floor laxity with possible rectocele. The urinary bladder is distended. The uterus is not visualized and may be surgically absent. No evidence of adnexal mass. There is no free fluid or free air. There are air loculi in the left upper gluteal region, which may be due to recent injection. There is superficial scarring in the bilateral gluteal regions. There are small fat-containing umbilical and bilateral inguinal hernias. Degenerative changes are identified in the spine. Bibasilar streaky atelectasis is present. A small hiatal hernia is present. Please note that evaluation of soft tissue/vascular structures and bowel loops is limited due to absence of IV and oral contrast. Impression: 1. No evidence of acute pancreatitis. 2. Other findings as described above. Suggest clinical correlation and follow up accordingly. Report Electronically Signed By: Maco Talbot 10/27/2025 1:21:02 AM [EST] Medications / Prescriptions Medications / Prescriptions considered but not ordered:: none Medication administrations:: Medication Administration History Discontinued Medications Nitroglycerin (Nitroglycerin Oint 2% 1 Inch Packet) 1 inch TOP X1 ONE Stop: 10/27/25 04:50 Ondansetron HCl (Ondansetron Inj 2 Mg/Ml Inj 2 Ml) 4 mg IM X1 ONE; Protocol Stop: 10/26/25 23:10 Last Admin: 10/26/25 23:33 Dose: 4 mg Documented By: CB see above Consultations Consultation(s) initiated? (list below): No Diagnosis Nausea Differential Diagnosis: food poisoning, gastroenteritis, drug-induced nausea and vomiting, dehydration and other (gastritis, diverticulitis, electrolyte abnormality) Most likely diagnosis given after review of the tests above:: see clinical impression below Admission Indicated Admission indicated?: not indicated Admission Request Was there a request for admission?: No Disposition Plan Disposition Plan: Discharge Discharge Attestation Discharge Attestation: The patient and all family members were given an opportunity to ask questions and understood the discharge instructions. Discharge instructions specifically effects, indications for sooner follow up or return to the emergency department, and the expected course of current diagnosis. Patient condition: Stable Discharge Plan Plan Patient Disposition: HOME (Self Care) Discharge Disposition comment: Stable Prescriptions/Referrals Prescriptions/Med Rec: New hydrochlorothiazide 25 mg tablet 25 mg PO QAM Qty: 30 1RF No Action ondansetron HCl [Zofran] 4 mg Tablet 4 mg PO QID PRN (Reason: Nausea) levothyroxine 50 mcg Tablet 50 mcg PO DAILY esomeprazole magnesium [Nexium] 40 mg Capsule,Delayed Release(Dr/Ec) 40 mg PO DAILY codeine-guaifenesin [Virtussin AC] 10-100 mg/5 mL Liquid 10 ml PO TID lorazepam 1 mg Tablet 1 mg PO BID albuterol sulfate [ProAir HFA] 90 mcg/actuation Hfa Aerosol Inhaler 2 hr inhalation QID acetaminophen [Tylenol] 325 mg Tablet 325 mg PO Q4H PRN (Reason: Pain) metoprolol succinate 25 mg Tablet Extended Release 24 Hr 25 mg PO QDAY aspirin 81 mg Tablet,Delayed Release (Dr/Ec) 81 mg PO QDAY nitroglycerin 0.4 mg Tablet, Sublingual 0.4 mg BUCCAL PRN PRN (Reason: Chest Pain) prochlorperazine maleate [Compazine] 10 mg Tablet 10 mg PO Q8H PRN (Reason: Vomiting) acetaminophen-codeine 300-60 mg Tablet 1 tab PO BID metoprolol succinate [Toprol XL] 25 mg Tablet Extended Release 24 Hr 25 mg PO QDAY oxycodone-acetaminophen [Percocet] 5-325 mg tablet 1 tab PO BID MDD 2 tabs PRN (Reason: pain (scale score 7-10)) Qty: 10 0RF ibuprofen 600 mg tablet 600 mg PO Q6H Qty: 30 0RF Referrals: Abdelrahman Dan MD [Primary Care Provider, Family Practice] - In 1 week Problem List Clinical Impression: Accelerated hypertension Impression comment: Accelerated hypertension Patient/Caregiver Discharge Instructions Discharge Activity: activity as tolerated Education Materials: Controlling High Blood Pressure Additional Instructions: Will begin hydrochlorothiazide in the a.m. along with metoprolol. Continue blood pressure monitoring twice daily and follow-up with primary care doctor with log created within 1 to 2 weeks. Print Language: [place]an Stand Alone Forms: [employer]ia Award Info., Patient Portal Info Letter
--- NOTE | 2025-10-27 04:41 | XR_ITS ---
EXAMINATION: AP chest single view TECHNIQUE: AP portable upright chest single view Date and time: October 27, 2025, 0447 hours, comparison March 03, 2023 INDICATIONS: Shortness of breath today. FINDINGS: Normal heart size Mild to moderate vascular congestion. No lobar pneumonia. Right axillary surgical clips. Right internal jugular Port-A-Cath tip satisfactory position Prominent osteopenia No lobar pneumonia IMPRESSION: Mild to moderate vascular congestion
[2025-10-27 04:56] VITALS: BP 168/94; PULSE 64; RESP 17; TEMP 36.8; O2SAT 96
[2025-10-27 05:30] VITALS: BP 151/60; PULSE 71
[2025-10-27] MEDS: NITROGLYCERIN OINT 2% 1 INCH PACKET TOP (05:30)
[2025-10-27 05:35] VITALS: BP 151/60; PULSE 68; RESP 18; TEMP 36.8; O2SAT 96
[2025-10-27 06:57] VITALS: BP 141/75; PULSE 78; RESP 18; TEMP 36.6; O2SAT 98
[2025-10-27 07:00] VITALS: BP 141/75; PULSE 77; RESP 17; TEMP 36.4; O2SAT 93
== END 2025-10-27 07:05 | disposition home or self-care (01) ==
PROVIDERS: Nurse Practitioner Family; Emergency Provider Emergency Medicine; PCP Family Medicine
DX: I10 Essential (primary) hypertension (principal); R06.02 Shortness of breath; R11.2 Nausea with vomiting, unspecified; R10.9 Unspecified abdominal pain
CPT/HCPCS: 36415; 71045; 74176; 80053; 81001; 83690; 85025; 96372; 99284; J2405; A9270